=== PATIENT | female | born 1960 | race Caucasian/White ===

== ENCOUNTER → 2017-01-03 | Outpatient (CLI) | payer SELFPAY ==
[~2017-01-03] MED LIST: ALBU8.5H2 IH; AMOX500C2 PO; GABA-488 PO; MELO15TA39
== END ==
LOC: RAD 12:49
PROVIDERS: ATTEND Nurse Practitioner Family
DX: R92.8 Other abnormal and inconclusive findings on diagnostic imaging of breast (principal)

== ENCOUNTER → 2017-06-07 | Outpatient (CLI) | payer OTHER ==
--- NOTE | 2017-06-07 21:16 | Diagnostic Imaging Report ---
Bilateral breast ultrasound. INDICATION: Follow-up bilateral complicated cystic lesions. FINDINGS: In the left breast at the 10:30 position, 6 cm from the nipple there is a 3 mm hypoechoic lesion seen likely a tiny cyst with internal debris. In the right breast 5 mm lesion at 12 o'clock zone 3 cm from the nipple is also again noted with smaller overall size compared to the previous exams. No adverse development. IMPRESSION: Complicated cysts are again seen which appear stable to minimally smaller compared to the prior studies suggestive of a benign etiology. No adverse development. Annual screening mammogram is recommended. ACR BI-RADS Category 3: Probably benign findings. Dictated by: Dictated on workstation # [id number]
--- NOTE | 2017-06-07 21:19 | Diagnostic Imaging Report ---
Bilateral diagnostic mammogram with tomography evaluation. INDICATION: Follow-up bilateral complicated cysts seen on ultrasound and mammography previously. COMPARISON: 12/15/2015. The current study was also evaluated with a Computer Aided Detection (CAD) system. FINDINGS: The breasts are composed of scattered fibroglandular densities with slight increased density in the mid aspect of each breast. The overall density of the breasts is slightly less compared to the previous exam. Circumscribed nodules are noted in the right breast without significant change. IMPRESSION: Stable mammographic findings. Nodular densities in the right breast are likely related to the complicated cysts seen on ultrasonography. Ultrasound examination is pending. ACR BI-RADS Category 0: Incomplete. (Needs additional imaging evaluation). Result letter will be mailed to the patient. Note: At least 10% of breast cancer is not imaged by mammography. Dictated by: Dictated on workstation # [id number]
== END ==
LOC: RAD 13:21
PROVIDERS: ATTEND Nurse Practitioner Family
DX: N60.11 Diffuse cystic mastopathy of right breast (principal); N60.12 Diffuse cystic mastopathy of left breast
CPT/HCPCS: 76642; 77066